=== PATIENT | female | born 1960 | race Caucasian/White ===

== ENCOUNTER 2020-04-26 13:25 | Day surgery (SDC) | payer OTHER ==
[~2020-04-26 13:25] MED LIST: Acetaminophen 500 MG TAB PO PRN; INFLIXIMAB DYYB IV SCH; SODIUM CHLORIDE 0.9% IV SCH; diphenhydrAMINE 25 MG CAP PO PRN
[2020-04-26] MEDS ORDERED: Sodium Chloride 0.9% 20 ML ONE (13:53)
[2020-04-26 14:06] LABS: #Basophils 0.1 thou/uL (0.0-0.2); #Eosinphils 0.2 thou/uL (0.0-0.7); #Lymphocytes 2.2 thou/uL (1.20-3.40); #Monocytes 0.7 thou/uL (0.11-0.59); #Neutrophils 3.8 thou/uL (1.40-6.50); %Basophils 1.1 % (0.0-1.0); %Eosinophils 3.3 % (0.0-10.0); %Lymphocytes 31.3 % (21.0-51.0); %Monocytes 9.7 % (0.0-10.0); %Neutrophils 54.7 % (42.0-75.0); Hemoglobin 13.4 g/dL (12.0-16.0); Mean Corpuscular HGB CONC 33.5 g/dL (32.0-36.0); Mean Corpuscular Hemoglobin 32.5 pg (27.0-31.0); Mean Platelet Volume 8.6 fL (7.4-10.4); Platelet Count 210 thou/uL (130-400); RBC Distribution Width 11.3 % (11.5-14.5); Red Blood Cell (RBC) Count 4.13 mill/uL (4.20-5.40)
[2020-04-26 14:27] LABS: ALT (SGPT) 20 U/L (8-55); AST (SGOT) 18 U/L (5-34); Albumin 3.8 g/dL (3.5-5.0); Alkaline Phosphatase 67 U/L (40-110); Anion Gap 10 mmol/L (10-20); BUN (Urea Nitrogen) 19 mg/dL (9.8-20.1); Bilirubin, Total 0.4 mg/dL (0.2-1.2); CRP (Inflammatory) 1.15 mg/dL (= or < 0.5); Calc. Creatinine Clearance 141 mL/min (70-130); Calcium 9.2 mg/dL (7.8-10.44); Carbon Dioxide 27 mmol/L (22-29); Chloride 105 mmol/L (98-107); Estimated GFR-MDRD 75; Globulin 3.2 g/dL (2.4-3.5); Glucose 132 mg/dL (70-105); Potassium 3.9 mmol/L (3.5-5.1); Sodium 138 mmol/L (136-145)
== END 2020-04-26 16:02 | disposition home or self-care (01) ==
LOC: ONC/OP 13:25
PROVIDERS: ATTEND Internal Medicine Rheumatology
DX: M06.09 Rheumatoid arthritis without rheumatoid factor, multiple sites (principal); Z88.0 Allergy status to penicillin; Z88.1 Allergy status to other antibiotic agents
CPT/HCPCS: 80053; 85025; 85652; 86140; 96413; 96415; Q0163

== ENCOUNTER 2020-06-12 12:57 | Day surgery (SDC) | payer OTHER ==
[2020-06-12] MEDS ORDERED: Sodium Chloride 0.9% 20 ML ONE (13:06)
[2020-06-12 13:20] VITALS: BP 129/64; TEMP 97.8
== END 2020-06-12 16:23 | disposition home or self-care (01) ==
LOC: ONC/OP 12:57
PROVIDERS: ATTEND Internal Medicine Rheumatology
DX: M06.09 Rheumatoid arthritis without rheumatoid factor, multiple sites (principal); Z88.0 Allergy status to penicillin; Z88.1 Allergy status to other antibiotic agents
CPT/HCPCS: 96413; 96415; Q0163

== ENCOUNTER 2020-08-10 12:48 | Day surgery (SDC) | payer OTHER ==
[~2020-08-10 12:48] MED LIST changes: -Acetaminophen 500 MG TAB PO PRN; +Acetaminophen 500 MG TAB PO SCH; -diphenhydrAMINE 25 MG CAP PO PRN; +diphenhydrAMINE 25 MG CAP PO SCH
[2020-08-10 13:35] VITALS: BP 148/79
== END 2020-08-10 15:27 | disposition home or self-care (01) ==
LOC: ONC/OP 12:48
PROVIDERS: ATTEND Internal Medicine Rheumatology
DX: M06.09 Rheumatoid arthritis without rheumatoid factor, multiple sites (principal); Z88.0 Allergy status to penicillin; Z88.1 Allergy status to other antibiotic agents
CPT/HCPCS: 96413; 96415

== ENCOUNTER 2020-09-28 11:25 | Day surgery (SDC) | payer OTHER ==
[~2020-09-28 11:25] MED LIST changes: +INFLIXIMAB-DYYB 800 MG in Sodium Chloride 0.9% 250 ML 170 ML IV SCH
[2020-09-28] MEDS ORDERED: Sodium Chloride 0.9% 20 ML ONE (11:38)
[2020-09-28 11:48] VITALS: BP 141/67
== END 2020-09-28 14:35 | disposition home or self-care (01) ==
LOC: ONC/OP 11:25
PROVIDERS: ATTEND Internal Medicine Rheumatology
DX: M06.09 Rheumatoid arthritis without rheumatoid factor, multiple sites (principal); Z88.0 Allergy status to penicillin; Z88.1 Allergy status to other antibiotic agents
CPT/HCPCS: 96413; 96415; Q0163

== ENCOUNTER 2020-11-10 13:02 | Day surgery (SDC) | payer OTHER, SELFPAY ==
[~2020-11-10 13:02] MED LIST changes: -INFLIXIMAB DYYB IV SCH; +INFLIXIMAB-DYYB 800 MG in Sodium Chloride 0.9% 250 ML 170 ML IVPB SCH; -SODIUM CHLORIDE 0.9% IV SCH; +Sodium Chloride 0.9% 20 ML ONE
[2020-11-10 13:23] VITALS: BP 125/64; TEMP 98.3
== END 2020-11-10 16:38 | disposition home or self-care (01) ==
LOC: ONC/OP 13:02
PROVIDERS: ATTEND Internal Medicine Rheumatology
DX: M06.09 Rheumatoid arthritis without rheumatoid factor, multiple sites (principal); Z88.0 Allergy status to penicillin; Z88.1 Allergy status to other antibiotic agents
CPT/HCPCS: 96413; 96415; Q0163

== ENCOUNTER 2021-02-02 13:05 | Day surgery (SDC) | payer OTHER ==
[~2021-02-02 13:05] MED LIST changes: +INFLIXIMAB DYYB IV SCH; -INFLIXIMAB-DYYB 800 MG in Sodium Chloride 0.9% 250 ML 170 ML IV SCH; -INFLIXIMAB-DYYB 800 MG in Sodium Chloride 0.9% 250 ML 170 ML IVPB SCH; +INFLIXIMAB-DYYB 800 MG in Sodium Chloride 0.9% 250 ML 250 ML IV SCH; +SODIUM CHLORIDE 0.9% IV SCH; -Sodium Chloride 0.9% 20 ML ONE
[2021-02-02] MEDS ORDERED: Sodium Chloride 0.9% 20 ML ONE (13:23)
== END 2021-02-02 15:30 | disposition home or self-care (01) ==
LOC: ONC/OP 13:05
PROVIDERS: ATTEND Internal Medicine Rheumatology
DX: M06.09 Rheumatoid arthritis without rheumatoid factor, multiple sites (principal); Z88.0 Allergy status to penicillin; Z88.1 Allergy status to other antibiotic agents
CPT/HCPCS: 96413; 96415; Q0163

== ENCOUNTER 2021-04-11 09:02 | Day surgery (SDC) | payer OTHER ==
[~2021-04-11 09:02] MED LIST changes: +Acetaminophen 500 MG TAB PO PRN; -Acetaminophen 500 MG TAB PO SCH; -INFLIXIMAB-DYYB 800 MG in Sodium Chloride 0.9% 250 ML 250 ML IV SCH; +diphenhydrAMINE 25 MG CAP PO PRN; -diphenhydrAMINE 25 MG CAP PO SCH
[2021-04-11] MEDS ORDERED: SODIUM CHLORIDE 0.9% IV SCH (09:15)
[2021-04-11] MEDS ORDERED: INFLIXIMAB DYYB IV SCH (09:15)
[2021-04-11 09:47] VITALS: BP 149/72; TEMP 99.1
== END 2021-04-11 12:20 | disposition home or self-care (01) ==
LOC: ONC/OP 09:02
PROVIDERS: ATTEND Internal Medicine Rheumatology
DX: M06.09 Rheumatoid arthritis without rheumatoid factor, multiple sites (principal); Z88.0 Allergy status to penicillin; Z88.1 Allergy status to other antibiotic agents
CPT/HCPCS: 96413; 96415

== ENCOUNTER → 2021-05-23 | Day surgery (SDC) | payer OTHER ==
[2021-05-23 14:45] VITALS: BP 125/59; TEMP 97.8
== END ==
LOC: ONC/OP 13:57
PROVIDERS: ATTEND Internal Medicine Rheumatology
DX: M06.09 Rheumatoid arthritis without rheumatoid factor, multiple sites (principal); Z88.0 Allergy status to penicillin; Z88.1 Allergy status to other antibiotic agents
CPT/HCPCS: 96413; 96415

== ENCOUNTER 2021-07-17 12:03 | Day surgery (SDC) | payer OTHER ==
[~2021-07-17 12:03] MED LIST changes: +diphenhydrAMINE 50 MG/ML VIAL IVP PRN
[2021-07-17] MEDS ORDERED: Sodium Chloride 0.9% 10 ML ONE ×2 (12:17)
[2021-07-17 13:02] VITALS: BP 129/60; TEMP 98.2
== END 2021-07-17 14:52 | disposition home or self-care (01) ==
LOC: ONC/OP 12:03
PROVIDERS: ATTEND Internal Medicine Rheumatology
DX: M06.09 Rheumatoid arthritis without rheumatoid factor, multiple sites (principal); Z88.0 Allergy status to penicillin; Z88.1 Allergy status to other antibiotic agents
CPT/HCPCS: 96413; 96415

== ENCOUNTER → 2021-08-31 | Day surgery (SDC) | payer OTHER ==
[~2021-08-31] MED LIST changes: -Acetaminophen 500 MG TAB PO PRN; +Acetaminophen 500 MG TAB PO SCH; -diphenhydrAMINE 25 MG CAP PO PRN; +diphenhydrAMINE 25 MG CAP PO SCH; -diphenhydrAMINE 50 MG/ML VIAL IVP PRN
[2021-08-31 14:07] VITALS: BP 122/58; TEMP 98
== END ==
LOC: ONC/OP 13:42
PROVIDERS: ATTEND Internal Medicine Rheumatology
DX: M06.09 Rheumatoid arthritis without rheumatoid factor, multiple sites (principal); Z88.0 Allergy status to penicillin; Z88.1 Allergy status to other antibiotic agents
CPT/HCPCS: 96413; 96415

== ENCOUNTER 2021-10-12 11:46 | Day surgery (SDC) | payer OTHER ==
[2021-10-12 13:10] VITALS: BP 129/66; TEMP 97.9
== END 2021-10-12 15:17 | disposition home or self-care (01) ==
LOC: ONC/OP 11:46
PROVIDERS: ATTEND Internal Medicine Rheumatology
DX: M06.09 Rheumatoid arthritis without rheumatoid factor, multiple sites (principal); Z88.0 Allergy status to penicillin; Z88.1 Allergy status to other antibiotic agents
CPT/HCPCS: 96413; 96415

== ENCOUNTER 2021-11-23 11:22 | Day surgery (SDC) | payer OTHER ==
[~2021-11-23 11:22] MED LIST changes: +diphenhydrAMINE 50 MG/ML VIAL IVP PRN
== END 2021-11-23 14:45 | disposition home or self-care (01) ==
LOC: ONC/OP 11:22
PROVIDERS: ATTEND Internal Medicine Rheumatology
DX: M06.09 Rheumatoid arthritis without rheumatoid factor, multiple sites (principal); Z88.0 Allergy status to penicillin; Z88.1 Allergy status to other antibiotic agents
CPT/HCPCS: 96413; 96415

== ENCOUNTER 2022-01-14 11:40 | Day surgery (SDC) | payer OTHER ==
[~2022-01-14 11:40] MED LIST changes: -diphenhydrAMINE 50 MG/ML VIAL IVP PRN
[2022-01-14] MEDS ORDERED: Acetaminophen 500 MG TAB ONE ×2 (12:03)
[2022-01-14] MEDS ORDERED: diphenhydrAMINE 25 MG CAP ONE (12:03)
[2022-01-14 14:00] VITALS: BP 134/64; TEMP 98
== END 2022-01-14 14:28 | disposition home or self-care (01) ==
LOC: ONC/OP 11:40
PROVIDERS: ATTEND Internal Medicine Rheumatology
DX: M06.09 Rheumatoid arthritis without rheumatoid factor, multiple sites (principal); Z88.0 Allergy status to penicillin; Z88.1 Allergy status to other antibiotic agents
CPT/HCPCS: 96413; 96415